=== PATIENT | female | born 1970 | race Caucasian/White ===

== ENCOUNTER 2017-05-07 16:05 | Inpatient (IN) | payer MEDICAID ==
--- NOTE | 2017-05-07 16:35 | EDPHY ---
H & P Smoking Status: Never smoked Time Seen by Provider: 05/07/17 16:24 HPI/ROS: CHIEF COMPLAINT: Mental health hold from [facility] HISTORY OF PRESENT ILLNESS: Patient is brought in on a mental health hold from the [facility] for visual an audio hallucinations. She has a history of bipolar disorder. She tells me that she was taken off her Latuda by Dr. Navarro 2 weeks ago and has been getting worse. She says that last night she work late and so did not go to [facility] but slept at home. Patient denies any medical complaints, no recent illnesses. Did miss her medications last night. REVIEW OF SYSTEMS: Eye: no change in vision ENT: no sore throat Cardiac: no chest pain or syncope Pulmonary: no cough or SOB Abdomen: no vomiting, diarrhea, abdominal pain Musculoskeletal: no back pain Skin: no rash Neuro: no headache Constitutional: no fever : no urinary symptoms A comprehensive 10 point review of systems is otherwise negative aside from elements mentioned in the history of present illness. PAST MEDICAL HISTORY: Bipolar disorder Social history: Denies alcohol or drugs, was recently at [facility] General Appearance: Alert and conversant, cooperative. Eyes: No scleral icterus. ENT, Mouth: Normal mucous membranes. Respiratory: Normal respiratory effort, breath sounds equal, lungs are clear to auscultation. Cardiovascular: Regular rate and rhythm. Gastrointestinal: Abdomen is soft and non tender. Neurological: Alert, face symmetric, normal motor and sensory in extremities. Ambulatory. Skin: Warm and dry, no rashes. Musculoskeletal: No peripheral edema. Psychiatric: Not agitated. Slightly pressured speech but denies suicidal or homicidal ideation and is not hallucinating on my exam. Emergency Department course/MDM: [facility] but the name is not spelled correctly. I have placed her on a new mental health hold in conjunction with mental health bankruptcy judge, based on the information on that initial form which is reports that she was having visual and auditory hallucinations and was very distractible at the time the hold was placed. Screening labs and psychiatric evaluation. The patient had a medical screening evaluation performed. There does not appear to be an acute emergent medical or surgical condition which would preclude psychiatric evaluation at this time. Mental health evaluation is requested at 1713. 2100: signed out to [facility] with inpatient psych placement pending. (Ming Neville ) Constitutional: Initial Vital Signs Temperature (C) 37.1 C 05/07/17 16:05 Heart Rate 113 H 05/07/17 16:05 Respiratory Rate 18 05/07/17 16:05 Blood Pressure 175/119 H 05/07/17 16:05 O2 Sat (%) 96 05/07/17 16:05 O2 Delivery Mode Room Air Allergies/Adverse Reactions: No Known Allergies Allergy (Unverified 05/16/16 23:24) Home Medications: Medication Instructions Recorded Burchinal Carbonate ER [Eskalith Cr 450 mg PO BID 08/05/16 450 mg (*)] Lurasidone HCl [Latuda] 80 mg PO DAILY@1800 08/05/16 Nortriptyline HCl [Pamelor 50 mg 50 mg PO HS 08/05/16 (*)] QUEtiapine FUMARATE [Seroquel 100 100 mg PO HS 08/05/16 mg (*)] Medical Decision Making ED Course/Re-evaluation: 2100: The patient is signed out to me by Dr. Neville at change of shift. Patient is awaiting placement. Patient is stable. (Chinyere Pan) - Data Points Laboratory Results: Laboratory Results 05/07/17 16:26 05/07/17 16:26 05/07/17 05/07/17 05/07/17 16:26 16:26 16:26 WBC RBC Hgb Hct MCV MCH MCHC RDW Plt Count MPV Neut % (Auto) Lymph % (Auto) [place] % (Auto) Eos % (Auto) Baso % (Auto) Nucleat RBC Rel Count Absolute Neuts (auto) Absolute Lymphs (auto) Absolute Monos (auto) Absolute Eos (auto) Absolute Basos (auto) Absolute Nucleated RBC Immature Gran % Immature Gran # Sodium 136 mEq/L mEq/L (135-145) Potassium 4.1 mEq/L mEq/L (3.5-5.2) Chloride 103 mEq/L mEq/L (97-110) Carbon Dioxide 17 mEq/l L mEq/l (22-31) Anion Gap 16 mEq/L mEq/L (8-16) BUN 6 mg/dL L mg/dL (7-23) Creatinine 0.7 mg/dL mg/dL (0.6-1.0) Estimated GFR > 60 Glucose 129 mg/dL H mg/dL (70-100) Calcium 10.0 mg/dL mg/dL (8.5-10.4) Beta HCG, Qual NEGATIVE Salicylates < 1.0 mg/dL L mg/dL (2.0-20.0) Urine Opiates Screen NEGATIVE (NEGATIVE) Acetaminophen < 10 mcg/mL L mcg/mL (10-30) Urine Barbiturates NEGATIVE (NEGATIVE) Ur Phencyclidine Scrn NEGATIVE (NEGATIVE) Ur Amphetamine Screen NEGATIVE (NEGATIVE) U Benzodiazepines Scrn NEGATIVE (NEGATIVE) B[place] 0.3 mEq/L L mEq/L (0.6-1.2) Urine Cocaine Screen NEGATIVE (NEGATIVE) U Marijuana (THC) Screen NEGATIVE (NEGATIVE) Ethyl Alcohol < 10 mg/dL mg/dL (0-10) 05/07/17 16:26 WBC 10.91 10^3/uL H 10^3/uL (3.80-9.50) RBC 4.63 10^6/uL 10^6/uL (4.18-5.33) Hgb 13.3 g/dL g/dL (12.6-16.3) Hct 40.8 % % (38.0-47.0) MCV 88.1 fL fL (81.5-99.8) MCH 28.7 pg pg (27.9-34.1) MCHC 32.6 g/dL g/dL (32.4-36.7) RDW 13.0 % % (11.5-15.2) Plt Count 405 10^3/uL H 10^3/uL (150-400) MPV 8.9 fL fL (8.7-11.7) Neut % (Auto) 78.7 % H % (39.3-74.2) Lymph % (Auto) 15.2 % % (15.0-45.0) [place] % (Auto) 5.1 % % (4.5-13.0) Eos % (Auto) 0.3 % L % (0.6-7.6) Baso % (Auto) 0.3 % % (0.3-1.7) Nucleat RBC Rel Count 0.0 % % (0.0-0.2) Absolute Neuts (auto) 8.59 10^3/uL H 10^3/uL (1.70-6.50) Absolute Lymphs (auto) 1.66 10^3/uL 10^3/uL (1.00-3.00) Absolute Monos (auto) 0.56 10^3/uL 10^3/uL (0.30-0.80) Absolute Eos (auto) 0.03 10^3/uL 10^3/uL (0.03-0.40) Absolute Basos (auto) 0.03 10^3/uL 10^3/uL (0.02-0.10) Absolute Nucleated RBC 0.00 10^3/uL 10^3/uL (0-0.01) Immature Gran % 0.4 % % (0.0-1.1) Immature Gran # 0.04 10^3/uL 10^3/uL (0.00-0.10) Sodium Potassium Chloride Carbon Dioxide Anion Gap BUN Creatinine Estimated GFR Glucose Calcium Beta HCG, Qual Salicylates Urine Opiates Screen Acetaminophen Urine Barbiturates Ur Phencyclidine Scrn Ur Amphetamine Screen U Benzodiazepines Scrn Burchinal Urine Cocaine Screen U Marijuana (THC) Screen Ethyl Alcohol Medications Given: Discontinued Medications Burchinal Carbonate (Burchinal Carbonate) 300 mg PO EDNOW ONE Stop: 05/07/17 20:34 Last Admin: 05/07/17 20:58 Dose: 300 mg Quetiapine Fumarate (Seroquel) 100 mg PO EDNOW ONE Stop: 05/07/17 21:01 Last Admin: 05/07/17 20:58 Dose: 100 mg Trazodone HCl (Trazodone) 50 mg PO EDNOW ONE Stop: 05/07/17 20:34 Last Admin: 05/07/17 20:58 Dose: 50 mg Departure - Departure Disposition: Other Psych, Not Felipe Clinical Impression: Hallucinations Bipolar disorder Qualifiers: Active/Remission status: currently active Current bipolar episode type: manic Current episode severity: moderate Qualified Code(s): F31.12 - Bipolar disorder , current episode manic without psychotic features, moderate Condition: Good Instructions: Bipolar Disorder (ED) Referrals: Huy Ortega MD [Non Staff Provider (MD)] - As per Instructions
[2017-05-07 16:38] LABS: PLATELET COUNT 405 10^3/uL (150-400)
[2017-05-07] MEDS ORDERED: LITHIUM CARBONATE 300 MG TAB ONE (20:27)
[2017-05-07] MEDS ORDERED: traZODone 50 MG TAB ONE (20:27)
[2017-05-07] MEDS ORDERED: LITHIUM CARBONATE 300 MG TAB PO ONE (20:33)
[2017-05-07] MEDS ORDERED: traZODone 50 MG TAB PO ONE (20:33)
[2017-05-07] MEDS ORDERED: QUEtiapine FUMARATE 50 MG TAB PO ONE (20:33)
[2017-05-07] MEDS ORDERED: QUEtiapine FUMARATE 100 MG TAB PO ONE (21:00)
[2017-05-07] MEDS ORDERED: LORazepam 0.5 MG TAB PO PRN (23:12)
[2017-05-07] MEDS ORDERED: MAGNESIUM HYDROXIDE 30 ML UDCUP PO PRN (23:12)
[2017-05-07] MEDS ORDERED: MAG HYDROX/AL HYDROX/SIMETH 30 ML UDCUP PO PRN (23:12)
[2017-05-07] MEDS ORDERED: ACETAMINOPHEN 325 MG TAB PO PRN (23:12)
[2017-05-07] MEDS ORDERED: OLANZapine 5 MG TAB PO PRN (23:13)
[2017-05-08] MEDS: LITHIUM CARBONATE 300 MG TAB PO SCH ×4 (05:52→20:10)
[2017-05-08] MEDS: busPIRone 15 MG TAB PO SCH ×2 (10:58→20:10)
--- NOTE | 2017-05-08 14:15 | SOAPPROG ---
SOAP Progress Note Assessment/Plan: 05/08/17 12:24 Pt seen and evaluated after avail EMR reviewed. Admission dictation to follow. Assessment: 46yo F with hx of BMD presents with mixed mood sxs in context of acute psychosocial stressors and recent discontinuation of Latuda 60mg. Pt states she has been taking meds b/c they are court-ordered, but then admits to missing a dose or two recently (Li <0.3) and off Latuda x 1mo since c/o weight gain as s/e. B/c of this, now lost job, and boyfriend who is "love of my life" (she met at [facility] last year and has SZP, she states). Denies AH/VH and consistently denies any SI, or thoughts to harm others, even though perseverating on losses. Discussed options, patient would like to just resume Latuda and home meds, instead of considering other medication options despite her c/o weight incr on Latuda. Plan: -cont [place], change to 600mg bid from 300mg qid -cont seroquel 100mg hs, which she likes for sleep -resume Latuda, 20mg and increase to prior dose 60mg/d. -decr buspar from 30mg bid to 15mg bid, consider d/c. ?contribution to [facility] -collateral from [facility] -cont on M1, safety precautions Objective: Vital Signs Temp Pulse Resp BP Pulse Ox 36.6 C 96 14 122/79 H 97 05/08/17 06:00 05/08/17 06:00 05/08/17 06:00 05/08/17 06:00 05/08/17 06:00 - Pending Discharge Pending Discharge Within 24 Hours: No Pending Discharge Within 48 Hours: No ICD10 Worksheet Patient Problems: Problems Problem Status Onset Bipolar disorder Acute Hallucinations Acute Bipolar 1 disorder, depressed, severe Acute
--- NOTE | 2017-05-08 15:44 | PDHOSCONS ---
History and Physical - Chief Complaint Medical clearance for inpatient behavioral health - History of Present Illness 46 yo female with hx of Bipolar who was admitted with acute exacerbation and visual and audio hallucinations. Other than psychiatrical illness she does not have any chronic known medical mgmt. Her VSS Her labs are reviewed. Her bicarb is 17. She has not been eating or drinking much per report. She denies cp, palpitations, leg swelling, SOB, n/v/d, or other. Denies pain. ROS: 10 point ROS is obtained and positive per above, otherwise negative PAST MEDICAL HISTORY: Bipolar disorder PAST SURGICAL HX: Denies Social history: Denies alcohol or drugs, was recently at [employer]. 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 Eyes: No scleral icterus. ENT, Mouth: Normal mucous membranes. Respiratory: Normal respiratory effort, breath sounds equal, lungs are clear to auscultation. Cardiovascular: Regular rate and rhythm. Gastrointestinal: Abdomen is soft and non tender. Neurological: Alert, face symmetric, normal motor and sensory in extremities. Ambulatory. Skin: Warm and dry, no rashes. Musculoskeletal: No peripheral edema. History Information - Allergies/Home Medication List Allergies/Adverse Reactions: No Known Allergies Allergy (Unverified 05/16/16 23:24) Home Medications: QUEtiapine FUMARATE [Seroquel 100 mg (*)] 100 mg PO HS 08/05/16 [Last Taken ] [place] Carbonate [[place] Carbonate Tab 300 mg (*)] 300 mg PO QID 05/07/17 [ Last Taken Unknown] Lurasidone HCl [Latuda] 40 mg PO DAILY@0800 05/07/17 [Last Taken Unknown] busPIRone [Buspar (*)] 15 mg PO BID 05/07/17 [Last Taken Unknown] traZODone [traZODONE 50MG (*)] 50 mg PO HS 05/07/17 [Last Taken Unknown] I have personally reviewed and updated: medical history, social history - Social History Smoking Status: Never smoked Review of Systems Review of Systems: ROS: 10pt was reviewed & negative except for what was stated in HPI & below Physical Exam Physical Exam: Temp Pulse Resp BP Pulse Ox 36.6 C 96 14 122/79 H 97 05/08/17 06:00 05/08/17 06:00 05/08/17 06:00 05/08/17 06:00 05/08/17 06:00 Constitutional: no apparent distress Lab Data & Imaging Review 05/07/17 16:26 05/07/17 16:26 WBC 10.91 10^3/uL (3.80-9.50) H 05/07/17 16: RBC 4.63 10^6/uL (4.18-5.33) 05/07/17 16:26 Hgb 13.3 g/dL (12.6-16.3) 05/07/17 16:26 Hct 40.8 % (38.0-47.0) 05/07/17 16: MCV 88.1 fL (81.5-99.8) 05/07/17 16: MCH 28.7 pg (27.9-34.1) 05/07/17 16: MCHC 32.6 g/dL (32.4-36.7) 05/07/17 16: RDW 13.0 % (11.5-15.2) 05/07/17 16: Plt Count 405 10^3/uL (150-400) H 05/07/17 16:26 MPV 8.9 fL (8.7-11.7) 05/07/17 16: Neut % (Auto) 78.7 % (39.3-74.2) H 05/07/17 16: Lymph % (Auto) 15.2 % (15.0-45.0) 05/07/17 16: [place] % (Auto) 5.1 % (4.5-13.0) 05/07/17 16: Eos % (Auto) 0.3 % (0.6-7.6) L 05/07/17 16: Baso % (Auto) 0.3 % (0.3-1.7) 05/07/17 16: Nucleat RBC Rel Count 0.0 % (0.0-0.2) 05/07/17 16: Absolute Neuts (auto) 8.59 10^3/uL (1.70-6.50) H 05/07/17 16:26 Absolute Lymphs (auto) 1.66 10^3/uL (1.00-3.00) 05/07/17 16:26 Absolute Monos (auto) 0.56 10^3/uL (0.30-0.80) 05/07/17 16:26 Absolute Eos (auto) 0.03 10^3/uL (0.03-0.40) 05/07/17 16:26 Absolute Basos (auto) 0.03 10^3/uL (0.02-0.10) 05/07/17 16:26 Absolute Nucleated RBC 0.00 10^3/uL (0-0.01) 05/07/17 16:26 Immature Gran % 0.4 % (0.0-1.1) 05/07/17 16: Immature Gran # 0.04 10^3/uL (0.00-0.10) 05/07/17 16:26 Sodium 136 mEq/L (135-145) 05/07/17 16:26 Potassium 4.1 mEq/L (3.5-5.2) 05/07/17 16:26 Chloride 103 mEq/L (97-110) 05/07/17 16:26 Carbon Dioxide 17 mEq/l (22-31) L 05/07/17 16:26 Anion Gap 16 mEq/L (8-16) 05/07/17 16:26 BUN 6 mg/dL (7-23) L 05/07/17 16:26 Creatinine 0.7 mg/dL (0.6-1.0) 05/07/17 16:26 Estimated GFR > 60 05/07/17 16:26 Glucose 129 mg/dL (70-100) H 05/07/17 16:26 Calcium 10.0 mg/dL (8.5-10.4) 05/07/17 16:26 Beta HCG, Qual NEGATIVE 05/07/17 16:26 Salicylates < 1.0 mg/dL (2.0-20.0) L 05/07/17 16:26 Urine Opiates Screen NEGATIVE (NEGATIVE) 05/07/17 16:26 Acetaminophen < 10 mcg/mL (10-30) L 05/07/17 16:26 Urine Barbiturates NEGATIVE (NEGATIVE) 05/07/17 16:26 Ur Phencyclidine Scrn NEGATIVE (NEGATIVE) 05/07/17 16:26 Ur Amphetamine Screen NEGATIVE (NEGATIVE) 05/07/17 16:26 U Benzodiazepines Scrn NEGATIVE (NEGATIVE) 05/07/17 16:26 [place] 0.3 mEq/L (0.6-1.2) L 05/07/17 16:26 Urine Cocaine Screen NEGATIVE (NEGATIVE) 05/07/17 16:26 U Marijuana (THC) Screen NEGATIVE (NEGATIVE) 05/07/17 16:26 Ethyl Alcohol < 10 mg/dL (0-10) 05/07/17 16:26 Assessment & Plan Assessment: #Bipolar disorder #Hallucinations #slight metabolic Acidosis likely due to decreased po intake. plan: psych mgmt per psych team encourage PO repeat BMP is one week or prior to discharge she does not have other medical issues
[2017-05-08] MEDS: QUEtiapine FUMARATE 100 MG TAB PO SCH (20:10)
[2017-05-08] MEDS ORDERED: LURASIDONE HCL 20 MG TAB PO SCH (21:00)
[2017-05-09] MEDS: LITHIUM CARBONATE 600 MG CAP PO SCH ×2 (08:26→21:22)
[2017-05-09] MEDS ORDERED: BENZTROPINE MESYLATE 1 MG TAB PO PRN (12:36)
--- NOTE | 2017-05-09 12:36 | SOAPPROG ---
SOAP Progress Note Assessment/Plan: 05/08/17 12:24 Pt seen and evaluated after avail EMR reviewed. Admission dictation to follow. Assessment: 46yo F with hx of BMD presents with mixed mood sxs in context of acute psychosocial stressors and recent discontinuation of Latuda 60mg. Pt states she has been taking meds b/c they are court-ordered, but then admits to missing a dose or two recently (Li <0.3) and off Latuda x 1mo since c/o weight gain as s/e. B/c of this, now lost job, and boyfriend who is "love of my life" (she met at [facility] last year and has SZP, she states). Denies AH/VH and consistently denies any SI, or thoughts to harm others, even though perseverating on losses. Discussed options, patient would like to just resume Latuda and home meds, instead of considering other medication options despite her c/o weight incr on Latuda. Plan: -cont [place], change to 600mg bid from 300mg qid -cont seroquel 100mg hs, which she likes for sleep -resume Latuda, 20mg and increase to prior dose 60mg/d. -decr buspar from 30mg bid to 15mg bid, consider d/c. ?contribution to [facility] -collateral from [facility] -cont on M1, safety precautions 05/09/17 12:19 per staff, slept 8hr. perseverative. did not attend AM group On interview, pt perseverative on hoping she did not lose her job at [employer]. Stated she and boyfriend got back together over phone last pm, "he still loves me, but I'm worried about my job". Difficult to engage in other conversation without response including "but I'm worried about my job". Despite attempts at reassurance, pt continued to talk about having missed shifts and not wanting to lose her job. Dressed in hosp gowns, nml speech rate/vol. noted with mild occasional lateral shifting of jaw. denied feeling stiff and with no tremor. good EC with somewhat of an intense stare, mood "worried about my job", affect somewhat anxious. States no SI, and denies any AH/VH. Did not appear RIS. Reports no subst use hx , "I'm a good girl". TC-TP- perseverative, illogical thought processes at times. A/Ox 3. i/j- both fair. recognizes her need for meds and to be in hospital. 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 Discussed medication options, and patient consistently stated she would like to remain on prior medications as she was taking as at [facility], including Seroquel 100mg qhs "that's my life blood", Trazodone 50mg "I can't sleep without it" ( although was reported to have slept well last night without Trazodone), Buspar for anxiety which she started several months ago, and Latuda, regardless of her c/o weight gain on it "I was doing better on it", and continuing [place]. Admits feeling anxious, picking at nails. Attributes anxiety to worry about losing her job. PLAN: -incr Latuda to 40mg today, then incr to 60mg in AM as at baseline -Cont [place] at 600mg bid. states as outpt she was taking 1200mg once daily, monitored through [facility] -watch for EPS. ?TD. Add Cogentin 1mg bid prn. -collateral from P in AM -cont to hold Trazodone. slept well last night. will avoid antidepressant category med in this pt with hx BMD -cont Seroquel 100mg hs -resume Buspar at 15mg po BID. possible incr anxiety related to abruptly being off this med? consider taper off depending on d/w outpt psych -cont on M1. reports being on c.o. meds. check with P if on STC/c.o. meds as outpt. o/w will likely need STC. Objective: Vital Signs Temp Pulse Resp BP Pulse Ox 35.5 C L 90 18 122/78 H 97 05/09/17 05:27 05/09/17 05:27 05/09/17 05:27 05/09/17 05:27 05/09/17 05:27 - Time Spent With Patient Time Spent With Patient: 35min - Pending Discharge Pending Discharge Within 24 Hours: No Pending Discharge Within 48 Hours: No ICD10 Worksheet Patient Problems: Problems Problem Status Onset Bipolar disorder Acute Hallucinations Acute Bipolar 1 disorder, depressed, severe Acute
[2017-05-09] MEDS: LURASIDONE HCL 40 MG TAB PO SCH (12:50)
[2017-05-09] MEDS: busPIRone 15 MG TAB PO SCH ×2 (12:50→21:22)
[2017-05-09] MEDS: QUEtiapine FUMARATE 100 MG TAB PO SCH (21:22)
--- NOTE | 2017-05-09 23:41 | BAPA ---
[f rep st] ADMISSION PSYCHIATRIC ASSESSMENT DATE OF SERVICE: 05/08/2017 CHIEF COMPLAINT: "I am devastated. Everything was going well until I lost my job and the love of my life..." HISTORY OF PRESENT ILLNESS: The patient is a 46-year-old female with history of bipolar disorder genaro gnosed in her early 20s. She was sent to the [facility] ER on a 72-hour mental health hold, placed at the walk-in clinic where she presented reporting auditory and visual hallucinations, feeling people are watching her, and erratic sleep patterns and not taking care of her ADLs. She als o expressed suicidal ideation with no plan. Thought processes were perseverative and not redirectabl e. The patient reported Latuda was discontinued by outpatient psychiatrist, and she had been progres sively getting worse. Further information indicates patient was complaining of weight gain on Latuda mg. Outpatient psychiatrist was tapering this medication. However, patient refused to t esha the Latuda and has been decompensating over the prior several weeks. She also admitted missing 1 to 2 days of her other medications but otherwise reported previously having been compliant, repeated ly stating "I have to take my medications. I'm court-ordered." Patient states that "things started to change" once she was off Latuda. Patient reports she was beco ned more depressed, started missing some work, decreased appetite, increase hopeless/helpless/worthl ess feelings, and sleep disturbance. She then alleges that because she lost her job her boyfriend br marisol up with her. "I kept calling my boyfriend and told him I would be homeless... I think he couldn' t handle my illness because I would not be financially independent." Patient then continued to perse verate on loss of her boyfriend, being the love of her life, how much they loved each other, had the "potential for a great love story. He is devastated too. He loved me." She admits she has only kno wn her boyfriend for 6 months, she met him at [facility], and he has schizophrenia. "I feel wit hout him. We had this beautiful love... I'll never recover." PAST PSYCHIATRIC HISTORY: Patient was diagnosed with bipolar disorder at age 25. She had a suicide attempt in 1996 by cutting her wrists and walking into traffic. She was hospitalized at [facility] in 1996 and 1998, also at [facility] in May 2016 for depression and suicidal idea tion, [facility] in July 2016 after transferring from [facility]. She had been admi tted to [facility] following 2 days in an ATU due to suicidal ideation and suicide attempt where she drank some parquetry floor layer. She transferred from [facility] to [facility] and was ho spitalized there from July until October of 2016. Of note, this history is obtained from [facility] evaluatio n dated 05/07/2017. CURRENT MEDICATIONS: Per [facility] report, home medications are lithium mg, Latuda m g, and Seroquel 100 mg at bedtime. Medications as lithium mg four times daily, although p atient states she has monitored medications daily and takes lithium 1200 mg once daily, quetiapine 10 0 mg p.o. at bedtime, lurasidone most recently 60 mg daily, although she has been not taking this for approximately 1 month, trazodone 50 mg at bedtime and BuSpar 30 mg p.o. twice daily. Patient report s she had been taking lithium for over 20 years. She has been on Abilify in the past, which was not helpful, states is Zyprexa not helpful and does not want more Seroquel because of concerns of weight gain. However, she reports Seroquel is her "life blood" and would like to continue medication at cur rent dose for sleep. MEDICAL HISTORY: Patient denied any past history of surgery or any acute or chronic medical problems . ALLERGIES: No known drug allergies. FAMILY PSYCHIATRIC HISTORY: Father with schizophrenia. PAST SUBSTANCE USE: Patient denied any recent substance use or history of. "I'm a good girl." SOCIAL HISTORY: Never . No children. Patient reported having a close relationship with her mother. She is an only child. Both parents were professors. Mother is presently a professor at [employer] in psychology. Patient has been living in [place] for the last 3 years in an [facility] independently. It seems patient was recently at [employer], and working at the [employer]. She samuels s been working at the [employer] for the past 6 months until reportedly recently losing her job related to h er psychiatric decompensation. It seems she has been on supervised medications, going to [facility] every morning to receive her medications. She reported being on court-ordered medication. Patient does have a master's degree from [employer] in heme angiography and received master's degree [employer] in natural resources law. 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 Patient lives in lives in [address] in [place] [facility] in [place] and lives independently when she is psychiatrically stable. LEGAL HISTORY: There is no report of prior legal history. MENTAL STATUS EXAMINATION: On admission, patient was dressed in hospital gowns, long dark hair, isol ating in her room. She readily engaged in interview with normal speech rate and volume, somewhat mon otonous tone. Eye contact was good, somewhat intense stare. Mood was "depressed, devastated." Affe ct was flattened/restricted. Thought process/thought content notable for significant perseveration o n having lost her job and boyfriend. It was very difficult to redirect the patient to answer questio ns in a linear goal-directed manner, and when she did respond to questions appropriately, almost each response was followed by a comment about having lost her boyfriend. Affect was almost tearful at ti mes. She denied any auditory or visual hallucinations. She denied any current or recent suicidal id eation, and no thoughts to harm others. She did state at one point, "I'm inside. I lost my boy friend. I'll never recover" but clarified that she was not feeling suicidal, this was just her emoti onal state. Patient expressed insight into having bipolar illness, acknowledging need for medication and acknowledging worsening of symptoms related to being off her medication. Her judgment seemed li mited. She was alert and oriented x3, and cognition seemed conversationally intact, and she seemed t o have a normal fund of knowledge, although presentation and current decompensated state made any fur ther formal cognitive assessment difficult. Therefore, no formal cognitive assessment was done. ASSESSMENT: 46-year-old female with a long history of bipolar mood disorder, history of high functio tea at baseline when stable but, per history, has been more acutely decompensated over the past year with several inpatient hospitalizations, relatively more stable for several months until recent medi cation noncompliance with Latuda due to her report of weight gain. Reportedly declining over the pas t few weeks and, more acutely, has not been medication compliant for the past 2 days with a lithium l evel of less than 0.3 in the ED on 05/07/2017. Patient clinically presents as bipolar with mixed fea tures. She agrees to resume previously effective medications despite her complaints of their side ef fects PLAN OF TREATMENT: 1. Admit to inpatient [facility], safety precautions and continue M1 hold. 2. Resume Latuda 20 mg, increase to 40 mg over the weekend, then plan to increase to a prior home do se of 60 mg although it may have been 80 mg. We will need to confirm with [facility] and patient's psychiat rist, Dr. Navarro, next week. 3. Continue Seroquel 100 mg p.o. at bedtime. Patient reports she likes this medication for sleep an d would like to continue. Also, she would like trazodone. We will wait on trazodone since this is a n antidepressant and could potentially worsen her bipolar and try to just use Seroquel for sleep at b edtime since this also has mood stabilizing effects. 4. Resume BuSpar at 15 mg p.o. twice daily. She states she had been taking this for anxiety and may have been up to 30 mg twice daily. We will resume at 15 mg twice daily for now and determine whethe r this medication is indicated to be continued. There have been reports in past literature for possi ble contribution to lise but also would not want to broadly discontinue this medication since it cou ld cause increased anxiety with abrupt discontinuation. 5. Resume lithium 600 mg p.o. twice daily. 6. Obtain further collateral from [facility]. Coordinate care with outpatient provider prior to discharge. Encourage group attendance and participation in therapeutic milieu activities. 7. test negative in ER. I would consider discussing family planning with this patient, co nsider IUD or Depo-Provera or alternative form of contraception as indicated. /[id number]/MODL
[2017-05-10] MEDS: busPIRone 15 MG TAB PO SCH ×2 (08:40→20:34)
[2017-05-10] MEDS: LITHIUM CARBONATE 600 MG CAP PO SCH ×2 (08:40→20:34)
[2017-05-10] MEDS: LURASIDONE HCL 40 MG TAB PO SCH (08:40)
--- NOTE | 2017-05-10 14:31 | SOAPPROG ---
SOAP Progress Note Assessment/Plan: Assessment: Plan: 05/10/17 14:27 Currently very disorganized, paranoid. Will current meds and monitor. May go to [place] if requested by Medicaid. O/w will monitor and work toward d/c back to independent living though she is a long ways from that now. Subjective: Pt seen, discussed with staff, chart reviewed. Case reviewed with Dr. Thompson. She is agitated, pressured, intrusive with me today. She perseverates on not wanting to go to [facility][Note 3]. She states repeatedly, "I'm doing well. I need to go to my job. I can't believe Dr. Nichole did this to me." Unable to rationally discuss her current clinical status. Compliant with meds. Objective: Vital Signs Temp Pulse Resp BP Pulse Ox 36.3 C 90 14 129/87 H 98 05/10/17 06:00 05/10/17 06:00 05/10/17 06:00 05/10/17 06:00 05/10/17 06:00 MSE: Poorly groomed, malodorous. Affect is somewhat expansive, irritable. Mood is "not good." TP perseverative on persecutory themes, o/w tangential. TC reveals persecutory thought re: being mistreated and held unfairly. - Time Spent With Patient Time Spent With Patient: 25" ICD10 Worksheet Patient Problems: Problems Problem Status Onset Bipolar disorder Acute Hallucinations Acute Bipolar 1 disorder, depressed, severe Acute
[2017-05-10] MEDS: QUEtiapine FUMARATE 100 MG TAB PO SCH (20:34)
[2017-05-11 06:41] VITALS: BP 121/84; PULSE 83; RESP 16; TEMP 98.5; O2SAT 97
[2017-05-11] MEDS: LURASIDONE HCL 40 MG TAB PO SCH (08:43)
[2017-05-11] MEDS: LITHIUM CARBONATE 600 MG CAP PO SCH (08:44)
[2017-05-11] MEDS: busPIRone 15 MG TAB PO SCH (08:44)
== END 2017-05-11 14:05 | DRG 885 ==
LOC: EDUNIT# → BBEH 22:10
PROVIDERS: ADMIT Psychiatry & Neurology Behavioral Neurology & Neuropsychiatry; ATTEND Psychiatry & Neurology Behavioral Neurology & Neuropsychiatry
DX: F31.9 Bipolar disorder, unspecified (principal)
CPT/HCPCS: 80305; G0480